=== PATIENT | female | born 1965 | race Caucasian/White ===

== ENCOUNTER → 2016-09-25 | Outpatient (REF) | payer OTHER ==
[2016-09-25 12:19] LABS: BASO % 0.6 % (0.0-1.0); EOS # 0.3 K/mm3 (0.0-0.50); EOS % 4.9 % (0.0-3.0); LARGE UNSTAINED CELL # 0.2 K/mm3 (0.0-0.4); LARGE UNSTAINED CELL % 2.6 % (0.0-4.0); LYMPH # 1.8 K/mm3 (1.5-4.5); LYMPH % 26.1 % (24.0-44.0); MEAN CORPUSCULAR HEMOGLOBIN 31.3 pg (27.0-33.0); MEAN CORPUSCULAR HGB CONC 33.1 g/dl (32.0-36.5); MEAN CORPUSCULAR VOLUME 94.6 fl (80.0-96.0); MONO # 0.3 K/mm3 (0.0-0.8); MONO % 4.7 % (0.0-5.0); NEUTROPHILS # 3.9 K/mm3 (1.8-7.7); NEUTROPHILS % 61.1 % (36.0-66.0); PLATELET COUNT, AUTOMATED 199 k/mm3 (150-450); RED CELL DISTRIBUTION WIDTH 13.2 % (11.5-14.5); WHITE BLOOD COUNT 6.4 K/mm3 (4.0-10.0)
[2016-09-25 12:40] LABS: ALBUMIN 3.4 GM/DL (3.2-5.2); ALBUMIN/GLOBULIN RATIO 0.92 (1.00-1.93); ALKALINE PHOSPHATASE 67 U/L (45-117); ALT/SGPT 25 U/L (12-78); ANION GAP 7 MEQ/L (8-16); AST/SGOT 16 U/L (15-37); BILIRUBIN,TOTAL 0.3 MG/DL (0.2-1.0); BLOOD UREA NITROGEN 16 MG/DL (7-18); CALCIUM LEVEL 8.9 MG/DL (8.5-10.1); CARBON DIOXIDE LEVEL 26 MEQ/L (21-32); CHLORIDE LEVEL 105 MEQ/L (98-107); CHOLESTEROL LEVEL 228 MG/DL (<200); CREATININE FOR GFR 0.71 MG/DL (0.55-1.02); FREE T4 0.78 NG/DL (0.76-1.46); GLOMERULAR FILTRATION RATE > 60.0 (>51); GLUCOSE, FASTING 91 MG/DL (70-105); SODIUM LEVEL 138 MEQ/L (136-145); TOTAL PROTEIN 7.1 GM/DL (6.4-8.2); TRIGLYCERIDES LEVEL 177 MG/DL (<150)
== END ==
LOC: M SFHCADAM 08:17
PROVIDERS: ATTEND Family Medicine
DX: R00.2 Palpitations (principal); E78.5 Hyperlipidemia, unspecified; E55.9 Vitamin D deficiency, unspecified

== ENCOUNTER → 2016-12-07 | Outpatient (REF) | payer OTHER | LOC: M SFHCADAM 15:24 | PROVIDERS: ATTEND Family Medicine | DX: E55.9 Vitamin D deficiency, unspecified (principal) ==

== ENCOUNTER → 2018-07-13 | Outpatient (CLI) | payer OTHER ==
--- NOTE | 2018-07-21 13:46 | REP ---
Pelvic sonography: Repeat dictation. History: Irregular menses. Findings: Transabdominal and transvaginal scanning performed. Uterine dimensions are normal at 9.0 x 5.0 x 5.6 cm. Endometrial echo is 1.1 cm thick. There is endocervical fluid and transvaginal images demonstrate a 7 x 7 x 5 mm polyp in the cervical endometrium projecting into the fluid and displaying blood flow. There is a posterior uterine fibroid measuring 2.9 x 2.7 x 3.2 cm. Visualized bladder lópez are smooth. The right ovary is normal measuring 1.9 x 1.6 x 1.8 cm. Left ovarian dimensions are 2.5 x 1.5 x 2.5 cm. There is a paraovarian cyst on the left adnexa 2.6 x 2.3 x 2.4 cm in diameter. Impression: 1. Endocervical polyp seen 7 mm in diameter with endocervical fluid. 2. 2.9 cm left posterior uterine myometrial fibroid. 3. 2.6 cm left adnexal paraovarian cyst. Electronically Signed by Adán Howard MD 07/21/2018 04:31 P
== END ==
LOC: M RAD 13:42
PROVIDERS: ATTEND Advanced Practice Midwife
DX: N92.6 Irregular menstruation, unspecified (principal); D25.9 Leiomyoma of uterus, unspecified; N84.1 Polyp of cervix uteri; Q50.5 Embryonic cyst of broad ligament

== ENCOUNTER → 2018-08-01 | Outpatient (REF) | payer OTHER | LOC: M LAB REF 13:43 | PROVIDERS: ATTEND Obstetrics & Gynecology | DX: N92.0 Excessive and frequent menstruation with regular cycle (principal) ==

== ENCOUNTER → 2018-09-28 | Outpatient (REF) | payer OTHER ==
[~2018-09-28] MED LIST: AZO1CAP PO; D3400CAP PO; OMEP20CA3 PO; OXYC1TAB23 PO
[2018-09-28 19:19] LABS: HEMATOCRIT 41.4 % (36.0-47.0); HEMOGLOBIN 13.2 g/dl (12.0-15.5); MEAN CORPUSCULAR HEMOGLOBIN 29.4 pg (27.0-33.0); MEAN CORPUSCULAR HGB CONC 31.9 g/dl (32.0-36.5); MEAN CORPUSCULAR VOLUME 92.2 fl (80.0-96.0); PLATELET COUNT, AUTOMATED 267 10^3/uL (150-450); RED BLOOD COUNT 4.49 10^6/uL (4.00-5.40); WHITE BLOOD COUNT 10.1 10^3/uL (4.0-10.0)
[2018-09-28 19:25] LABS: ALBUMIN 4.1 GM/DL (3.2-5.2); ALT/SGPT 43 U/L (12-78); BILIRUBIN,TOTAL 0.4 MG/DL (0.2-1.0); BLOOD UREA NITROGEN 15 MG/DL (7-18); CALCIUM LEVEL 9.2 MG/DL (8.5-10.1); CARBON DIOXIDE LEVEL 28 MEQ/L (21-32); CHLORIDE LEVEL 106 MEQ/L (98-107); CREATININE FOR GFR 0.72 MG/DL (0.55-1.30); GLOMERULAR FILTRATION RATE > 60.0 (>51); GLUCOSE, FASTING 85 MG/DL (70-100); POTASSIUM SERUM 4.8 MEQ/L (3.5-5.1); SODIUM LEVEL 139 MEQ/L (136-145); TOTAL PROTEIN 7.9 GM/DL (6.4-8.2)
== END ==
LOC: M SFHCADAM 13:35
PROVIDERS: ATTEND Family Medicine
DX: Z01.818 Encounter for other preprocedural examination (principal)

== ENCOUNTER → 2018-09-30 | Outpatient (REF) | payer OTHER ==
[2018-09-30 12:54] LABS: BASO # 0.1 10^3/uL (0.0-0.2); BASO % 0.8 % (0.0-1.0); EOS # 0.4 10^3/uL (0.0-0.50); EOS % 4.1 % (0.0-3.0); HEMATOCRIT 41.7 % (36.0-47.0); HEMOGLOBIN 13.1 g/dl (12.0-15.5); LYMPH # 2.6 10^3/uL (1.5-4.5); LYMPH % 29.4 % (24.0-44.0); MEAN CORPUSCULAR HEMOGLOBIN 28.9 pg (27.0-33.0); MEAN CORPUSCULAR HGB CONC 31.4 g/dl (32.0-36.5); MEAN CORPUSCULAR VOLUME 91.9 fl (80.0-96.0); MONO # 0.7 10^3/uL (0.0-0.8); MONO % 8.2 % (0.0-5.0); NEUTROPHILS # 5.1 10^3/uL (1.8-7.7); NEUTROPHILS % 57.1 % (36.0-66.0); PLATELET COUNT, AUTOMATED 263 10^3/uL (150-450); RED BLOOD COUNT 4.54 10^6/uL (4.00-5.40)
[2018-09-30 12:58] LABS: BLOOD UREA NITROGEN 12 MG/DL (7-18); CALCIUM LEVEL 9.2 MG/DL (8.5-10.1); CARBON DIOXIDE LEVEL 28 MEQ/L (21-32); CHLORIDE LEVEL 105 MEQ/L (98-107); CREATININE FOR GFR 0.68 MG/DL (0.55-1.30); GLOMERULAR FILTRATION RATE > 60.0 (>51); GLUCOSE, FASTING 88 MG/DL (70-100); POTASSIUM SERUM 4.2 MEQ/L (3.5-5.1); SODIUM LEVEL 139 MEQ/L (136-145)
[2018-09-30 12:59] LABS: ALT/SGPT 43 U/L (12-78); BILIRUBIN,TOTAL 0.6 MG/DL (0.2-1.0); CHOLESTEROL LEVEL 234 MG/DL (<200); HDL CHOLESTEROL 75 MG/DL (>40); LDL CHOLESTEROL 137 MG/DL (<100); NON-HDL-C 159 MG/DL; TOTAL PROTEIN 7.4 GM/DL (6.4-8.2); TRIGLYCERIDES LEVEL 109 MG/DL (<150)
== END ==
LOC: M SFHCADAM 10:38
PROVIDERS: ATTEND Family Medicine
DX: K21.9 Gastro-esophageal reflux disease without esophagitis (principal); E66.3 Overweight; E55.9 Vitamin D deficiency, unspecified

== ENCOUNTER 2018-10-10 12:57 | Day surgery (SDC) | payer OTHER ==
[~2018-10-10] VITALS: Ht 152.4 cm; Wt 74.4 kg
[~2018-10-10 12:57] MED LIST changes: +ACETAMINOPHEN 1000MG 100ML IV BTL (OFIRMEV) (J0131 PER 10MG) As Ordered ONE; +KETAMINE HCL 200 MG/20 ML VIAL As Ordered ONE; +KETOROLAC 60 MG/2 ML VIAL (J1885) As Ordered ONE; +LIDOCAINE 2% INJ 100 MG/5 ML SDV (FOR ANES.) As Ordered ONE; +MIDAZOLAM INJ 2 MG/2 ML VIAL (J2250) As Ordered ONE; +ONDANSETRON 4MG/2ML VIAL (J2405) As Ordered ONE; +PROPOFOL 200 MG/20 ML VIAL As Ordered ONE; +PROPOFOL 500 MG/50 ML VIAL As Ordered ONE; +ROCURONIUM BROMIDE 50 MG/5 ML VIAL As Ordered ONE; +SUGAMMADEX SODIUM 500 MG/5 ML VIAL (BRIDION) As Ordered ONE; +dexameTHASONE 4 MG/ML 1ML VIAL (J1100) As Ordered ONE; +fentaNYL 250 MCG/5 ML INJECTION (J3010) As Ordered ONE
[2018-10-10] MEDS ORDERED: LR 1,000 ML IV ONE (13:15)
[2018-10-10] MEDS ORDERED: BUPIVACAINE HCL 0.25% 30 ML VIAL As Ordered ONE (13:24)
[2018-10-10] MEDS ORDERED: PROPOFOL 500 MG/50 ML VIAL As Ordered ONE (14:46)
[2018-10-10] MEDS ORDERED: MEPERIDINE INJ 25 MG/ML VIAL (J2175) IV PRN (16:45)
[2018-10-10] MEDS ORDERED: PERCOCET 5MG/325MG TAB PO PRN ×2 (16:45)
[2018-10-10] MEDS ORDERED: PROMETHAZINE INJ 25 MG/ML VIAL (J2550) IV PRN (16:45)
[2018-10-10] MEDS ORDERED: METOCLOPRAMIDE INJ 10MG/2ML VIAL (J2765) IV PRN (16:45)
[2018-10-10] MEDS ORDERED: oxyCODONE 5MG TAB PO PRN (16:45)
[2018-10-10] MEDS ORDERED: LR 1,000 ML IV SCH ×2 (16:45)
[2018-10-10] MEDS ORDERED: MORPHINE 4 MG/ML 1ML VIAL/SYRINGE (J2270) IV PRN (16:45)
[2018-10-10] MEDS ORDERED: ONDANSETRON 4MG/2ML VIAL (J2405) IV PRN (16:45)
[2018-10-10] MEDS: fentaNYL 100 MCG/2 ML INJECTION (J3010) IV PRN ×4 (17:25→17:45)
[2018-10-10 18:15] VITALS: BP 159/80
[2018-10-10 18:45] VITALS: BP 132/73
[2018-10-10 20:45] VITALS: BP 166/77
[2018-10-10] MEDS: KETOROLAC 30 MG/ML VIAL (J1885) IV SCH (21:04)
[2018-10-10 21:45] VITALS: BP 175/79
[2018-10-10 22:24] VITALS: BP 138/80
--- NOTE | 2018-10-10 22:27 | RO ---
DATE OF PROCEDURE: 10/10/2018 PREOPERATIVE DIAGNOSES: 1. Abnormal uterine bleeding. 2. Fibroid uterus. DIAGNOSES: 1. Abnormal uterine bleeding. 2. Fibroid uterus. SURGEON: Deb Dela Cruz MD CUPOLA REPAIRER: Ava Kasper NP ANESTHESIA: General endotracheal anesthesia. PROCEDURE PERFORMED: 1. Robotic-assisted laparoscopic hysterectomy. 2. Bilateral salpingectomy. 3. Lysis of adhesion. 4. Cystoscopy. ESTIMATED BLOOD LOSS: 50 mL. INTRAVENOUS FLUIDS: 1400 mL of lactated Ringer's solution. URINE OUTPUT: 200 mL. PREOPERATIVE ANTIBIOTICS: 2 grams of Ancef. SPECIMENS: Cervix, uterus, bilateral fallopian tubes. OPERATIVE FINDINGS: Omental adhesions to the anterior abdominal wall and to the lower uterine segment. There was a left paratubal cyst, otherwise normal appearing ovaries, fibroid uterus. PREOPERATIVE ANTIBIOTICS: 2 grams of Ancef. DESCRIPTION OF OPERATION: After informed consent was obtained and written consent was reviewed, the patient was brought the operating room where general endotracheal anesthesia was obtained. She was then placed in lithotomy position and was prepped and draped in a normal sterile fashion. A time-out in the operating room was then performed identifying the patient, procedure to be performed as well as drug allergies. Speculum was placed revealing the cervix, the anterior lip and the posterior aspects of the cervix stitched with #0 Vicryl. A medium VCare uterine manipulator was then advanced through the cervical os and was insufflated with 7 mL of air. The cervical cap as well as the vaginal sleeve was applied down into the vagina. Pérez catheter was then placed and set to gravity. Gloves were changed. Attention was then turned to the patient's abdomen where a Veress needle was placed through the umbilicus and pneumoperitoneum was then obtained with CO2 gas. The supraumbilical area was then infused with 0.25% Marcaine. An incision was made in this area and 8 mm trocar and sleeve was advanced through this incision. The laparoscope was then replaced revealing intra-abdominal placement. Additional three port sites was placed. One was to the right side of the patient's abdomen parallel to the umbilicus. The other two were placed to left side the abdomen, one was parallel to the umbilicus, the other slightly above. Each one these areas was infused with 0.25% Marcaine. Incision was made in each one of these areas. 8 mm trocar and sleeve was advanced through each one of these incisions under direct visualization. The da Isac was then docked utilizing a camera arm and two operative arms. Using a vessel sealer, lysis of adhesions was performed releasing the anterior abdominal adhesions to the lower uterine segment with good hemostasis noted. Attention was then turned to the patient's fallopian tube where the mesosalpinx was transected bilaterally with good hemostasis noted. The uterine ovarian ligaments were then cauterized and ligated with good hemostasis noted. The round ligaments were then cauterized and ligated with good hemostasis noted. The broad ligament was then into the anterior and posterior leaves. Anterior leaf of the broad ligament was dissected along the bladder creating a bladder flap. The remainder of the broad and cardinal ligaments were cauterized and ligated with good hemostasis noted. The uterine vessels were then skeletonized bilaterally and were cauterized and ligated with good hemostasis noted. Next, using monopolar scissors, anterior and posterior colpotomies were made and the uterus was removed vaginally. Surgical sites were inspected, noted be hemostatic. The vaginal cuff was then closed using the an #0 V-Loc in a running nonlocking fashion. The surgical sites was then irrigated and suctioned. Christina was applied over the surgical field, surgical sites and once again noted to be hemostatic. Instruments were then removed from the patient's abdomen and pneumoperitoneum was then released. Attention was then turned to the patient for cystoscopy. Pérez catheter was removed. The cystoscope was inserted transurethrally and inspection of the bladder was performed showing normal bladder mucosa. No foreign objects. Bilateral ureteral jets were observed. The cystoscope was then removed, the bladder was drained. Gloves were changed, where the trocars were removed and all four port sites were closed with #4-0 Monocryl and was dressed with Dermabond. The patient was then taken out of the lithotomy position and was awakened from general anesthesia and taken to recovery in stable condition. Counts were correct. Ava Kasper, my operating room surgical technician, played an essential role during the surgery. She assisted with port placement, tissue identification and retraction, as well as removal of the specimen and port closure. LINDA
[2018-10-10 23:00] VITALS: BP 140/82
[2018-10-11] MEDS: KETOROLAC 30 MG/ML VIAL (J1885) IV SCH ×2 (02:41→08:48)
[2018-10-11 04:00] VITALS: BP 134/60
[2018-10-11 08:00] VITALS: BP 132/62
== END 2018-10-11 09:10 | disposition home or self-care (01) ==
LOC: M SDC 12:57 → M PED 18:00 → M SDC 10-11 09:10
PROVIDERS: ATTEND Obstetrics & Gynecology
DX: N93.9 Abnormal uterine and vaginal bleeding, unspecified (principal); D25.1 Intramural leiomyoma of uterus; N84.1 Polyp of cervix uteri; N83.8 Other noninflammatory disorders of ovary, fallopian tube and broad ligament; K21.9 Gastro-esophageal reflux disease without esophagitis; Z79.899 Other long term (current) drug therapy; Z98.51 Tubal ligation status; Z87.891 Personal history of nicotine dependence
CPT/HCPCS: 36415; 58571; 86850; 86900; 86901; 88307; J0131; J0690; J1100; J1885; J2250; J2405; J3010

== ENCOUNTER → 2019-04-17 | Outpatient (CLI) | payer OTHER ==
[~2019-04-17] MED LIST changes: -ACETAMINOPHEN 1000MG 100ML IV BTL (OFIRMEV) (J0131 PER 10MG) As Ordered ONE; -KETAMINE HCL 200 MG/20 ML VIAL As Ordered ONE; -KETOROLAC 60 MG/2 ML VIAL (J1885) As Ordered ONE; -LIDOCAINE 2% INJ 100 MG/5 ML SDV (FOR ANES.) As Ordered ONE; -MIDAZOLAM INJ 2 MG/2 ML VIAL (J2250) As Ordered ONE; -OMEP20CA3 PO; +OMEP20CA4 PO; -ONDANSETRON 4MG/2ML VIAL (J2405) As Ordered ONE; -PROPOFOL 200 MG/20 ML VIAL As Ordered ONE; -PROPOFOL 500 MG/50 ML VIAL As Ordered ONE; -ROCURONIUM BROMIDE 50 MG/5 ML VIAL As Ordered ONE; -SUGAMMADEX SODIUM 500 MG/5 ML VIAL (BRIDION) As Ordered ONE; -dexameTHASONE 4 MG/ML 1ML VIAL (J1100) As Ordered ONE; -fentaNYL 250 MCG/5 ML INJECTION (J3010) As Ordered ONE
--- NOTE | 2019-04-17 10:27 | REP ---
BILATERAL SCREENING MAMMOGRAM WITH 3D TOMOSYNTHESIS: No family history of breast cancer. Tyrer-Cuzick lifetime risk of breast cancer, 8.6%. MLO and CC views of both breasts performed with 3D tomosynthesis. COMPARISON: 06/18/2009 In the right retroareolar region, there is a 2 cm nodule which, for the most part, appears fairly well circumscribed, best seen on tomographic images. Moderate fibroglandular tissue is seen bilaterally without other evidence of nodule or mass. No clustered microcalcifications are seen. IMPRESSION: BIRADS 0: BI-RADS/ACR category 0 mammogram, Incomplete: Need additional imaging evaluation and/or prior mammograms for comparison. ACR 0 incomplete. 2 cm fairly well-circumscribed nodule right retroareolar region. Recommend spot compression views and ultrasound to further evaluate. ACR 0 incomplete. This mammogram was interpreted with the aid of an FDA-approved computer-aided detection system. The patient states she/he had a clinical breast exam in 08/2018. The patient letter being requested is M0.
== END ==
LOC: M WHC 08:10
PROVIDERS: ATTEND Family Medicine
DX: Z12.31 Encounter for screening mammogram for malignant neoplasm of breast (principal); N63.41 Unspecified lump in right breast, subareolar

== ENCOUNTER → 2019-05-03 | Outpatient (CLI) | payer OTHER ==
[~2019-05-03] MED LIST changes: +OMEP-172 PO; -OMEP20CA4 PO
--- NOTE | 2019-05-03 14:00 | REP ---
DIAGNOSTIC MAMMOGRAM RIGHT BREAST WITH RIGHT BREAST ULTRASOUND: Spot compression views of the right breast performed and correlated with the recent mammogram of 04/17/2019. Smoothly marginated retroareolar nodules conformed on today's spot compression views. It measures approximately 2 cm in diameter and is relatively smoothly marginated. Real-time sonographic evaluation of the right retroareolar region is performed. Anechoic cyst is seen 1.5 cm in diameter in the right retroareolar region corresponding to the mammographic abnormality. However, also at 9 o'clock there is an oval hypoechoic structure. There are diffuse internal echoes. This could be cystic or solid. It measures 1.0 cm in maximum diameter. IMPRESSION: BIRADS 4: BI-RADS/ACR category 4 mammogram. Suspicious Abnormality - biopsy should be considered. Spot compression views confirm the presence of the a smoothly marginated right retroareolar nodule. By ultrasound this corresponds to a benign anechoic cyst. However in the adjacent 9 o'clock region of the right breast there is an oval hypoechoic nodule which could be cystic or solid. Recommend ultrasound guided aspiration/biopsy. The patient letter being requested is M4. Unreviewed
== END ==
LOC: M RAD 11:16
PROVIDERS: ATTEND Family Medicine
DX: Z12.31 Encounter for screening mammogram for malignant neoplasm of breast (principal); N63.10 Unspecified lump in the right breast, unspecified quadrant

== ENCOUNTER → 2019-05-26 | Outpatient (CLI) | payer OTHER ==
[~2019-05-26] MED LIST changes: +LIDOCAINE 1% MDV 20ML VIAL As Ordered ONE
[2019-05-26 13:38] VITALS: BP 173/79
--- NOTE | 2019-05-26 18:52 | REP ---
Ultrasound-guided right breast aspiration. The procedure was performed by PELON Cerda, under the direct supervision of Dr. Howard. The risks and benefits of the procedure were explained to the patient and informed consent was obtained both verbally and written. Directly prior to the start of the procedure, a formal timeout was completed in the procedure room. The right breast cyst was localized using ultrasound guidance. The skin was prepped and draped in a sterile fashion. 4 ml 1% lidocaine 10 mg/ml was used as a local anesthetic. Using ultrasound guidance a 18-gauge spinal needle was inserted and .5 ml of clear fluid was obtained. The cyst fully collapsed and was not visualized after the aspiration. The patient tolerated the procedure well and there were no immediate complications. After the appropriate monitored convalescence the patient was discharged from the department. Reviewed by PELON Gillespie 05/26/2019 05:03 P Electronically Signed by Adán Howard MD 05/26/2019 06:44 P
== END ==
LOC: M IRPRO 11:33
PROVIDERS: ATTEND Family Medicine
DX: N63.11 Unspecified lump in the right breast, upper outer quadrant (principal); N63.13 Unspecified lump in the right breast, lower outer quadrant

== ENCOUNTER → 2020-01-17 | Outpatient (REF) | payer OTHER ==
[~2020-01-17] MED LIST changes: -LIDOCAINE 1% MDV 20ML VIAL As Ordered ONE; -OMEP-172 PO; +OMEP1CAP73 PO
[2020-01-17 14:56] LABS: BASO # 0.1 10^3/uL (0.0-0.2); BASO % 0.6 % (0.0-1.0); EOS # 0.2 10^3/uL (0.0-0.5); EOS % 3.1 % (0.0-3.0); HEMOGLOBIN 14.5 g/dl (12.0-15.5); LYMPH % 25.4 % (24.0-44.0); MEAN CORPUSCULAR HEMOGLOBIN 29.7 pg (27.0-33.0); MEAN CORPUSCULAR HGB CONC 31.5 g/dl (32.0-36.5); MEAN CORPUSCULAR VOLUME 94.1 fl (80.0-96.0); MONO # 0.6 10^3/uL (0.0-0.8); MONO % 7.3 % (0.0-5.0); NEUTROPHILS # 4.9 10^3/uL (1.5-8.5); NEUTROPHILS % 62.6 % (36.0-66.0); PLATELET COUNT, AUTOMATED 235 10^3/uL (150-450); RED BLOOD COUNT 4.89 10^6/uL (4.00-5.40); WHITE BLOOD COUNT 7.9 10^3/uL (4.0-10.0)
[2020-01-17 15:11] LABS: ALBUMIN 3.8 GM/DL (3.2-5.2); ALT/SGPT 57 U/L (12-78); BILIRUBIN,TOTAL 0.4 MG/DL (0.2-1.0); BLOOD UREA NITROGEN 17 MG/DL (7-18); CALCIUM LEVEL 9.6 MG/DL (8.5-10.1); CARBON DIOXIDE LEVEL 27 MEQ/L (21-32); CHLORIDE LEVEL 106 MEQ/L (98-107); CHOLESTEROL LEVEL 253 MG/DL (<200); CHOLESTEROL RISK RATIO 3.373 (<5); CREATININE FOR GFR 0.76 MG/DL (0.55-1.30); GLOMERULAR FILTRATION RATE > 60.0 (>51); GLUCOSE, FASTING 101 MG/DL (70-100); HDL CHOLESTEROL 75 MG/DL (>40); LDL CHOLESTEROL 150 MG/DL (<100); NON-HDL-C 178 MG/DL; POTASSIUM SERUM 4.7 MEQ/L (3.5-5.1); SODIUM LEVEL 140 MEQ/L (136-145); TOTAL PROTEIN 7.9 GM/DL (6.4-8.2); TRIGLYCERIDES LEVEL 140 MG/DL (<150)
== END ==
LOC: M LAB REF 12:52
PROVIDERS: ATTEND Family Medicine
DX: Z00.00 Encounter for general adult medical examination without abnormal findings (principal)

== ENCOUNTER → 2020-02-07 | Outpatient (CLI) | payer OTHER ==
--- NOTE | 2020-02-22 13:19 | REP ---
LUMBOSACRAL SPINE SERIES: 02/07/20 CLINICAL: Lower back pain. TECHNIQUE: AP lateral, bilateral oblique and coned down views of the lumbosacral spine. FINDINGS: Alignment and lordosis maintained. Vertebral bodies intact. No acute fracture/compression injury or subluxation. Disc spaces appear maintained. Minimal endplate sclerosis at L5-S1 and L4-5 noted. IMPRESSION: Essentially normal lumbosacral spine series. If the patient remains symptomatic, consider MRI for further investigation. MTDD
== END ==
LOC: M ADAMS 09:42
PROVIDERS: ATTEND Family Medicine
DX: M54.5 Low back pain (principal)

== ENCOUNTER → 2020-05-20 | Outpatient (CLI) | payer SELFPAY | LOC: M LABSMTC 12:51 | PROVIDERS: ATTEND Pediatrics | DX: Z20.828 Contact with and (suspected) exposure to other viral communicable diseases (principal) ==

== ENCOUNTER → 2020-08-02 | Outpatient (CLI) | payer OTHER | LOC: M WHC 05:39 | PROVIDERS: ATTEND Advanced Practice Midwife | DX: Z12.31 Encounter for screening mammogram for malignant neoplasm of breast (principal); Z53.8 Procedure and treatment not carried out for other reasons ==

== ENCOUNTER → 2020-08-07 | Outpatient (CLI) | payer OTHER ==
--- NOTE | 2020-08-07 09:26 | REPMRS ---
Patient History The patient states she has not had a clinical breast exam in over a year. No known family history of cancer. US Guided Breast Biopsy of the right breast, May 26, 2019. No Hormone Replacement Therapy Digital Woman Screen Mammo: August 07, 2020 - Exam #: [id number] Bilateral CC and MLO view(s) were taken. Technologist: Samreen Wilcox, Technologist Prior study comparison: May 03, 2019, right breast digital mammo diagnostic unilateral, performed at [facility]. May 03, 2019, right breast ultrasound unilateral limited, performed at [facility]. April 17, 2019, bilateral digital woman screen mammo performed at [facility]. June 18, 2009, bilateral digital mammo screening bilat, performed at [facility]. FINDINGS: There are scattered fibroglandular densities. The Volpara volumetric breast density category is: B. The cyst previously identified in the right breast at 12 o'clock has regressed. There is a moderate amount of residual fibroglandular tissue which is fairly symmetric. There is no interval development of dominant mass, architectural distortion, or grouped microcalcification typical of malignancy. There has been no change in the appearance of the mammogram from the prior studies. 3-D tomosynthesis shows no additional findings. Assessment: BI-RADS/ACR category 1 mammogram. Negative Mammogram. Recommendation Routine screening mammogram of both breasts in 1 year (for women over age 40). This patient's [facility] Lifetime Breast Cancer RIsk is estimated at 8.2 %. This mammogram was interpreted with the aid of an FDA-approved computer-aided dectection system. Electronically Signed By: Dino Howard MD 08/07/20 [id number]
== END ==
LOC: M WHC 08:36
PROVIDERS: ATTEND Advanced Practice Midwife
DX: Z12.31 Encounter for screening mammogram for malignant neoplasm of breast (principal)

== ENCOUNTER → 2020-10-31 | Outpatient (REF) | payer OTHER | LOC: M SFHCADAM 12:45 | PROVIDERS: ATTEND Physician Assistant Medical | DX: N30.01 Acute cystitis with hematuria (principal) ==

== ENCOUNTER → 2021-03-12 | Outpatient (REF) | payer OTHER ==
[2021-03-12 13:35] LABS: APPEARANCE, URINE CLEAR (CLEAR); BACTERIA, URINE AUTO NEGATIVE (NEGATIVE); BILIRUBIN, URINE AUTO NEGATIVE (NEGATIVE); BLOOD, URINE BLOOD NEGATIVE (NEGATIVE); COLOR, URINE YELLOW (YELLOW); GLUCOSE, URINE (UA) AUTO NEGATIVE (NEGATIVE); KETONE, URINE AUTO NEGATIVE (NEGATIVE); LEUKOCYTE ESTERASE, URINE AUTO TRACE (NEGATIVE); NITRITE, URINE AUTO NEGATIVE (NEGATIVE); PROTEIN, URINE AUTO NEGATIVE (NEGATIVE); RBC, URINE AUTO 0 /HPF (0-3); SPECIFIC GRAVITY URINE AUTO 1.008 (1.002-1.035); SQUAMOUS EPITHELIAL CELL UR AU 1 /HPF (0-6); UROBILINOGEN, URINE AUTO 0.2 mg/dL (0.0-2.0); WBC, URINE AUTO 1 /HPF (0-3)
== END ==
LOC: M SFHCADAM 10:13
PROVIDERS: ATTEND Family Medicine
DX: R30.0 Dysuria (principal)

== ENCOUNTER → 2021-10-28 | Outpatient (CLI) | payer OTHER | LOC: M WHC 08:25 | PROVIDERS: ATTEND Advanced Practice Midwife | DX: Z53.9 Procedure and treatment not carried out, unspecified reason (principal) ==

== ENCOUNTER → 2022-03-25 | Outpatient (CLI) | payer OTHER | LOC: M WHC 16:42 | PROVIDERS: ATTEND Advanced Practice Midwife | DX: Z12.31 Encounter for screening mammogram for malignant neoplasm of breast (principal) ==

== ENCOUNTER → 2022-10-09 | Outpatient (CLI) | payer OTHER | LOC: M RAD 08:11 | PROVIDERS: ATTEND Nurse Practitioner Family | DX: R79.89 Other specified abnormal findings of blood chemistry (principal); K76.0 Fatty (change of) liver, not elsewhere classified ==